=== PATIENT | male | born 1990 | race Hispanic/Latino ===

== ENCOUNTER 2017-06-18 23:56 | Emergency (ER) | payer SELFPAY ==
[2017-06-19 04:11] LABS: Basophils % (Auto) 0.8 % (0.0-1.8); Eosinophils % (Auto) 2.3 % (0.0-4.3); Hematocrit 45.6 % (35.5-45.6); Hemoglobin 15.8 gm/dl (11.8-15.2); Mean Corpuscular HGB Conc 35 % (32-34); Mean Corpuscular Hemoglobin 29 pg (28-32); Mean Corpuscular Volume 85 fl (84-94); Platelet Count 293 K/mm3 (140-440); Red Blood Count 5.38 M/mm3 (3.65-5.03); Red Cell Distribution Width 12.9 % (13.2-15.2); White Blood Count 10.4 K/mm3 (4.5-11.0)
[2017-06-19 04:33] LABS: Alanine Aminotransferase 38 units/L (7-56); Albumin 4.5 g/dL (3.9-5); Albumin/Globulin Ratio 1.6 %; Alkaline Phosphatase 68 units/L (35-129); Anion Gap 18 mmol/L; BUN/Creatinine Ratio 8.88; Blood Urea Nitrogen 8 mg/dL (9-20); Carbon Dioxide 26 mmol/L (22-30); Chloride 101.7 mmol/L (98-107); Glucose 104 mg/dL (75-100); Lipase 31 units/L (13-60); Potassium 4.1 mmol/L (3.6-5.0); Sodium 142 mmol/L (137-145); Total Protein 7.4 g/dL (6.3-8.2)
[2017-06-19 07:13] LABS: Bilirubin,Urine NEG (Negative); Blood,Urine NEG (Negative); Ketones,Urine NEG (Negative); Leukocyte Esterase,Urine NEG (Negative); Mucus,Urine FEW /HPF; Nitrite,Urine NEG (Negative); Protein,Urine <15 mg/dL mg/dL (Negative); Urobilinogen,Urine < 2.0 mg/dL (<2.0); WBC,Urine < 1.0 /HPF (0.0-6.0)
[2017-06-19] MEDS ORDERED: MORPHINE IV ONE (08:40)
[2017-06-19] MEDS ORDERED: ZOFRAN IV ONE (08:40)
[2017-06-19] MEDS ORDERED: NACL 0.9% 1000 ML 1,000 ML IV ONE (08:40)
--- NOTE | 2017-06-19 08:40 | Emergency Department Report ---
ED Abdominal Pain HPI - General Chief Complaint: Abdominal Pain Stated Complaint: ABD PAIN/VOMITING Time Seen by Provider: 06/19/17 08:18 Source: patient Mode of arrival: Ambulatory Limitations: No Limitations - History of Present Illness Initial Comments: 26-year-old male with a history of Crohn's disease here with complaint of worsening left lower quadrant pain for approximately 3 weeks. Patient states that his pain is significant bleeding worsened over the last day. He he has been having some nausea and vomiting that started yesterday. Denies fevers chills. He had a bowel movement with bloody stool yesterday. He is followed by loans consultant Dr. King at [facility]. He is not taking any medial modulators. States he may have had a recent CT within the last 30 days. MD Complaint: abdominal pain -: Gradual Location: LLQ Radiation: none Migration to: no migration Severity: moderate Severity scale (0 -10): 10 Quality: cramping Consistency: colicky Improves With: nothing Worsens With: eating Associated Symptoms: nausea, vomiting, diarrhea - Related Data Home Medications Medication Instructions Recorded Confirmed Last Taken ALPRAZolam [Xanax TAB] 0.5 mg PO Q6H PRN 06/19/17 06/19/17 06/16/17 traMADol [Ultram] 50 mg PO Q6HR PRN 06/19/17 06/19/17 06/12/17 Previous Rx's Medication Instructions Recorded Last Taken Type Ibuprofen [Motrin] 600 mg PO Q8H PRN #30 tablet 06/19/17 Unknown Rx predniSONE [Deltasone] 40 mg PO QDAY #6 tab 06/19/17 Unknown Rx traMADol [Ultram 50 MG tab] 50 mg PO Q6HR PRN #15 tablet 06/19/17 Unknown Rx Allergies Allergy/AdvReac Type Severity Reaction Status Date / Time No Known Allergies Allergy Verified 06/19/17 09:05 ED Review of Systems ROS: Stated complaint: ABD PAIN/VOMITING Other details as noted in HPI Comment: All other systems reviewed and negative Constitutional: denies: chills, fever Eyes: denies: eye pain, eye discharge, vision change Respiratory: denies: cough, shortness of breath, wheezing Cardiovascular: denies: chest pain, palpitations Endocrine: no symptoms reported Gastrointestinal: abdominal pain, nausea, diarrhea Genitourinary: denies: urgency, dysuria Musculoskeletal: denies: back pain, joint swelling, arthralgia Skin: denies: rash, lesions Neurological: denies: headache, weakness, paresthesias Psychiatric: denies: anxiety, depression Hematological/Lymphatic: denies: easy bleeding, easy bruising ED Past Medical Hx - Past Medical History Previous Medical History?: Yes Additional medical history: crohn's, h/o MRSA 2008 - Surgical History Past Surgical History?: Yes Additional Surgical History: neck sx secondary to MRSA, 2008 - Family History Family history: no significant - Social History Smoking Status: Never Smoker Substance Use Type: None - Medications Home Medications: Home Medications Medication Instructions Recorded Confirmed Last Taken Type ALPRAZolam [Xanax TAB] 0.5 mg PO Q6H PRN 06/19/17 06/19/17 06/16/17 History Ibuprofen [Motrin] 600 mg PO Q8H PRN #30 tablet 06/19/17 Unknown Rx predniSONE [Deltasone] 40 mg PO QDAY #6 tab 06/19/17 Unknown Rx traMADol [Ultram 50 MG tab] 50 mg PO Q6HR PRN #15 tablet 06/19/17 Unknown Rx traMADol [Ultram] 50 mg PO Q6HR PRN 06/19/17 06/19/17 06/12/17 History ED Physical Exam - General Limitations: No Limitations General appearance: alert, in no apparent distress - Head Head exam: Present: atraumatic, normocephalic - Eye Eye exam: Present: normal appearance. Absent: scleral icterus - ENT ENT exam: Present: mucous membranes moist - Neck Neck exam: Present: normal inspection - Respiratory Respiratory exam: Present: normal lung sounds bilaterally. Absent: respiratory distress - Cardiovascular Cardiovascular Exam: Present: regular rate, normal rhythm. Absent: systolic murmur, diastolic murmur, rubs, gallop - GI/Abdominal GI/Abdominal exam: Present: soft, tenderness (left lower quadrant left lower quadrant), guarding (mild), normal bowel sounds - Rectal Rectal exam: Present: deferred - Extremities Exam Extremities exam: Present: normal inspection - Back Exam Back exam: Present: normal inspection - Neurological Exam Neurological exam: Present: alert, oriented X3 - Psychiatric Psychiatric exam: Present: normal affect, normal mood - Skin Skin exam: Present: warm, dry, intact, normal color. Absent: rash ED Course Vital Signs 06/19/17 06/19/17 06/19/17 00:07 00:10 00:20 Temperature Pulse Rate 113 H 113 H 114 H Respiratory 27 H 28 H 39 H Rate Blood Pressure 164/80 164/80 146/70 Blood Pressure [Left] Blood Pressure [Right] O2 Sat by Pulse 100 100 100 Oximetry 06/19/17 06/19/17 06/19/17 00:30 00:36 00:40 Temperature 99 F Pulse Rate 109 H 77 108 H Respiratory 26 H 18 42 H Rate Blood Pressure 146/70 157/83 Blood Pressure [Left] Blood Pressure 124/81 [Right] O2 Sat by Pulse 100 100 100 Oximetry 06/19/17 06/19/17 06/19/17 00:50 00:56 01:00 Temperature 99 F Pulse Rate 107 H 77 106 H Respiratory 27 H 18 40 H Rate Blood Pressure 154/80 124/81 154/80 Blood Pressure [Left] Blood Pressure [Right] O2 Sat by Pulse 100 100 100 Oximetry 06/19/17 06/19/17 06/19/17 02:16 02:20 02:30 Temperature Pulse Rate 110 H 110 H 109 H Respiratory 31 H 18 Rate Blood Pressure 147/77 157/79 157/79 Blood Pressure [Left] Blood Pressure [Right] O2 Sat by Pulse 94 97 96 Oximetry 06/19/17 06/19/17 06/19/17 02:40 02:50 03:00 Temperature Pulse Rate 108 H 112 H 109 H Respiratory 30 H 15 35 H Rate Blood Pressure 165/83 164/81 164/81 Blood Pressure [Left] Blood Pressure [Right] O2 Sat by Pulse 100 100 100 Oximetry 06/19/17 06/19/17 06/19/17 04:06 07:52 08:00 Temperature Pulse Rate 96 H 75 Respiratory 24 19 Rate Blood Pressure 167/87 114/80 108/68 Blood Pressure [Left] Blood Pressure [Right] O2 Sat by Pulse 100 99 Oximetry 06/19/17 06/19/17 06/19/17 08:08 08:10 08:20 Temperature 98.3 F Pulse Rate 84 79 92 H Respiratory 18 16 18 Rate Blood Pressure 108/68 108/68 Blood Pressure 114/80 [Left] Blood Pressure [Right] O2 Sat by Pulse 98 96 98 Oximetry 06/19/17 06/19/17 06/19/17 08:22 08:30 08:40 Temperature Pulse Rate 79 74 Respiratory 18 18 15 Rate Blood Pressure 111/68 111/68 Blood Pressure [Left] Blood Pressure [Right] O2 Sat by Pulse 98 98 Oximetry 06/19/17 06/19/17 06/19/17 08:50 09:20 09:30 Temperature Pulse Rate 74 64 Respiratory 15 11 L Rate Blood Pressure 111/68 96/50 Blood Pressure [Left] Blood Pressure [Right] O2 Sat by Pulse 98 97 99 Oximetry 06/19/17 06/19/17 06/19/17 09:40 09:50 10:00 Temperature Pulse Rate 70 63 70 Respiratory 17 13 14 Rate Blood Pressure 96/50 96/50 111/68 Blood Pressure [Left] Blood Pressure [Right] O2 Sat by Pulse 100 100 99 Oximetry ED Medical Decision Making - Lab Data Result diagrams: 06/19/17 03:45 06/19/17 03:45 Laboratory Results - last 24 hr 06/19/17 06/19/17 06/19/17 03:45 03:45 Unknown WBC 10.4 RBC 5.38 H Hgb 15.8 H Hct 45.6 MCV 85 MCH 29 MCHC 35 H RDW 12.9 L Plt Count 293 Lymph % (Auto) 28.6 [place] % (Auto) 6.4 Eos % (Auto) 2.3 Baso % (Auto) 0.8 Lymph # 3.0 [place] # 0.7 Eos # 0.2 Baso # 0.1 Seg Neutrophils % 61.9 Seg Neutrophils # 6.4 Sodium 142 Potassium 4.1 Chloride 101.7 Carbon Dioxide 26 Anion Gap 18 BUN 8 L Creatinine 0.9 Estimated GFR > 60 BUN/Creatinine Ratio 8.88 Glucose 104 H Calcium 9.0 Total Bilirubin 0.50 AST 17 ALT 38 Alkaline Phosphatase 68 Total Protein 7.4 Albumin 4.5 Albumin/Globulin Ratio 1.6 Lipase 31 Urine Color Yellow Urine Turbidity Clear Urine pH 6.0 Ur Specific [place] 1.015 Urine Protein <15 mg/dl Urine Glucose (UA) Neg Urine Ketones Neg Urine Blood Neg Urine Nitrite Neg Urine Bilirubin Neg Urine Urobilinogen < 2.0 Ur Leukocyte Esterase Neg Urine WBC (Auto) < 1.0 Urine RBC (Auto) 1.0 Urine Mucus Few - Radiology Data Radiology results: report reviewed - Medical Decision Making 26-year-old male with a history of Crohn's disease here with worsening left lower quadrant pain. This is not typical of his Crohn's pain. Even though he had a recent CT I plan to CT his abdomen with IV contrast given his change in the character of his pain. He has no white count and his labs are otherwise unremarkable. He does appear clinically dehydrated and we will treat with IV fluids and Zofran and morphine. Will likely start a dose of steroids here in the emergency department and referred back to his loans consultant. 10:21 AM- on reassessment patient feels slightly improved. His labs are unremarkable. His CT is normal. Plan to discharge home with follow-up to his loans consultant. Portions of this chart were dictated with dictation software. There may be dictation errors contained within this note. Critical care attestation.: If time is entered above; I have spent that time in minutes in the direct care of this critically ill patient, excluding procedure time. ED Disposition Clinical Impression: Abdominal pain, Crohn disease Disposition: DC-01 TO HOME OR SELFCARE Is pt being admited?: No Condition: Stable Instructions: Acute Abdominal Pain (ED) Additional Instructions: Follow-up with your loans consultant Prescriptions: Ibuprofen [Motrin] 600 mg PO Q8H PRN #30 tablet PRN Reason: Pain predniSONE [Deltasone] 40 mg PO QDAY #6 tab traMADol [Ultram 50 MG tab] 50 mg PO Q6HR PRN #15 tablet PRN Reason: Pain Referrals: PRIMARY CARE, [Primary Care Provider] - 3-5 Days
[2017-06-19] MEDS ORDERED: NACL ONE (09:01)
--- NOTE | 2017-06-19 09:31 | Cat Scan Report ---
CT SCAN OF THE ABDOMEN AND PELVIS WITH CONTRAST: HISTORY: Left lower quadrant abdominal pain, Crohn's disease. TECHNIQUE: Helical CT in 1.25mm intervals following IV contrast. Sagittal and coronal reconstructions. COMPARISON: None at this facility. FINDINGS: The liver is normal in size and is without focal defect. No gallstones or biliary dilatation are noted. The spleen and pancreas demonstrate a normal size and attenuation with no evidence of abnormal mass. The kidneys are normal in size and position with no evidence of hydronephrosis or mass. The adrenal glands are normal. There is no intestinal obstruction or ascites. Normal appendix. The abdominal aorta is normal. No abnormalities are identified within the retroperitoneum or mesentery. There is no evidence of peritoneal air or fluid. There is no evidence of any abnormal masses or fluid collections within the pelvis. No adenopathy is identified. The bladder is normal. IMPRESSION: Unremarkable CT scan of the abdomen and pelvis with contrast.
[2017-06-19 10:20] VITALS: BP 111/68
== END 2017-06-19 10:44 | disposition home or self-care (01) ==
LOC: ED 23:56
DX: K50.90 Crohn's disease, unspecified, without complications (principal)
CPT/HCPCS: 36415; 74177; 80053; 81001; 83690; 85025; 96361; 96374; 96375; 99284; J2270; J2405; J7030; Q9967

== ENCOUNTER 2017-10-01 14:37 | Emergency (ER) | payer OTHER ==
[2017-10-01 14:57] VITALS: BP 133/74
[2017-10-01] MEDS ORDERED: ZOFRAN ODT PO ONE (15:12)
--- NOTE | 2017-10-01 15:14 | Emergency Department Report ---
Chief Complaint: Abdominal Pain Stated Complaint: ABD PAIN Time Seen by Provider: 10/01/17 15:12 - [facility] History of Present Illness: Patient is a 26-year-old male with a history of Crohn's disease diagnosed in 2008 presents ED complaining of left right abdominal pain 3 days. She states he's never had a pain like days and is Crohn's flareup to not cause as much pain. He admits nausea but did denies fever/chills/vomiting/diarrhea or constipation - ROS Review of Systems: as noted in HPI - Exam Vital Signs: Vital Signs 10/01/17 14:53 Temperature 98.7 F Pulse Rate 100 H Respiratory 16 Rate Blood Pressure 133/74 O2 Sat by Pulse 100 Oximetry Physical Exam: GENERAL: Alert and oriented x3, no apparent distress, Normal Gait, atraumatic. HEAD: Head is normocephalic and a-traumatic. HEART: S1, S2 present, regular rate and rhythm without murmur, no rubs, no gallops. Non tender to palpation ABDOMEN: Tender to palpation right mid quadrant, NO CVA tenderness. MSE screening note: Focused history and physical exam performed. Due to findings the following was ordered: ED Medical Decision Making - Lab Data Result diagrams: 10/01/17 15:18 10/01/17 15:18 - Medical Decision Making Abdominal pain protocol ordered. Zofran ordered for nausea Patient is to be seen the ED physician ED Disposition for MSE Condition: Stable
[2017-10-01 15:33] LABS: Basophils % (Auto) 0.8 % (0.0-1.8); Eosinophils % (Auto) 2.3 % (0.0-4.3); Hematocrit 48.7 % (35.5-45.6); Hemoglobin 16.5 gm/dl (11.8-15.2); Mean Corpuscular HGB Conc 34 % (32-34); Mean Corpuscular Hemoglobin 30 pg (28-32); Mean Corpuscular Volume 88 fl (84-94); Platelet Count 247 K/mm3 (140-440); Red Blood Count 5.56 M/mm3 (3.65-5.03); Red Cell Distribution Width 13.3 % (13.2-15.2)
[2017-10-01 15:52] LABS: Alanine Aminotransferase 29 units/L (7-56); Albumin 4.3 g/dL (3.9-5); Albumin/Globulin Ratio 1.6 %; Alkaline Phosphatase 100 units/L (35-129); Anion Gap 17 mmol/L; BUN/Creatinine Ratio 8; Blood Urea Nitrogen 6 mg/dL (9-20); Calcium 8.9 mg/dL (8.4-10.2); Carbon Dioxide 28 mmol/L (22-30); Chloride 98.8 mmol/L (98-107); Glucose 126 mg/dL (75-100); Lipase 29 units/L (13-60); Sodium 140 mmol/L (137-145)
[2017-10-01 17:06] LABS: Bilirubin,Urine Negative (Negative); Ketones,Urine Negative (Negative)
[2017-10-01 17:07] LABS: Blood,Urine Negative (Negative); Leukocyte Esterase,Urine Negative (Negative); Nitrite,Urine Negative (Negative); Protein,Urine <15 mg/dL mg/dL (Negative); Urobilinogen,Urine < 2.0 mg/dL (<2.0)
[2017-10-01 17:08] LABS: Mucus,Urine 1+ /HPF
--- NOTE | 2017-10-01 18:01 | Cat Scan Report ---
FINAL REPORT EXAM: CT ABDOMEN PELVIS WO CON HISTORY: rq pain TECHNIQUE: CT abdomen and pelvis without contrast PRIORS: None. FINDINGS: No acute abnormality identified in the lung bases. No focal abnormality identified within the liver parenchyma. The spleen demonstrates normal size and attenuation. No pancreatic abnormalities seen. There is punctate there is punctate nonobstructing lower pole right renal calculus There is a punctate nonobstructing upper pole left renal calculus. No ureteral calculi are identified. No evidence for hydronephrosis or perinephric stranding. The adrenal glands are unremarkable. Abdominal aorta is normal in caliber. No pathologically enlarged lymph nodes are identified. No signs of free fluid or free air No evidence of small bowel dilatation. No evidence of colonic dilatation. No pericolonic inflammatory change seen. appendix is identified and is unremarkable IMPRESSION: Punctate nonobstructing bilateral renal calculi
[2017-10-01] MEDS ORDERED: ZOFRAN IM ONE (18:21)
[2017-10-01] MEDS ORDERED: DILAUDID IM ONE (18:21)
--- NOTE | 2017-10-01 18:26 | Emergency Department Report ---
ED Abdominal Pain HPI - General Chief Complaint: Abdominal Pain Stated Complaint: ABD PAIN Time Seen by Provider: 10/01/17 15:12 Source: patient, family Mode of arrival: Ambulatory Limitations: No Limitations - History of Present Illness Initial Comments: Patient is 26-year-old male with history of Crohn's disease coming today was left lower quadrant abdominal pain for the last 4 days associated with nausea no vomiting, patient denied diarrhea. No fever, no urinary symptoms. MD Complaint: abdominal pain -: Gradual Location: LLQ Severity scale (0 -10): 7 Quality: cramping Associated Symptoms: nausea. denies: vomiting, diarrhea - Related Data Home Medications Medication Instructions Recorded Confirmed Last Taken ALPRAZolam [Xanax TAB] 0.5 mg PO Q6H PRN 06/19/17 06/19/17 06/16/17 Previous Rx's Medication Instructions Recorded Last Taken Type HYDROcodone/APAP 5-325 [[place] 1 each PO Q6HR PRN #11 tablet 06/19/17 Unknown Rx 5-325 mg TAB] Ibuprofen [Motrin] 600 mg PO Q8H PRN #30 tablet 06/19/17 Unknown Rx predniSONE [Deltasone] 40 mg PO QDAY #6 tab 06/19/17 Unknown Rx traMADol [Ultram 50 MG tab] 50 mg PO Q6HR PRN #15 tablet 06/19/17 Unknown Rx HYDROcodone/APAP 5-325 [[place] 1 each PO Q6HR PRN #14 tablet 10/01/17 Unknown Rx 5/325] Ondansetron [Zofran Odt] 4 mg PO Q8HR PRN #14 tab.rapdis 10/01/17 Unknown Rx Allergies Allergy/AdvReac Type Severity Reaction Status Date / Time NSAIDS (Non-Steroidal AdvReac Unknown Verified 10/01/17 14:57 Anti-Inflamma ED Review of Systems ROS: Stated complaint: ABD PAIN Other details as noted in HPI Comment: All other systems reviewed and negative Constitutional: denies: chills, fever Respiratory: denies: cough, orthopnea, shortness of breath Cardiovascular: denies: chest pain, palpitations Gastrointestinal: abdominal pain, nausea. denies: vomiting, diarrhea, constipation, hematemesis, hematochezia Genitourinary: denies: urgency, frequency Musculoskeletal: denies: back pain Skin: denies: rash, lesions Neurological: denies: headache, weakness, numbness, paresthesias ED Past Medical Hx - Past Medical History Previous Medical History?: Yes Additional medical history: crohn's, h/o MRSA 2008 - Surgical History Past Surgical History?: Yes Additional Surgical History: neck sx secondary to MRSA, 2008 - Social History Smoking Status: Current Every Day Smoker Substance Use Type: None - Medications Home Medications: Home Medications Medication Instructions Recorded Confirmed Last Taken Type ALPRAZolam [Xanax TAB] 0.5 mg PO Q6H PRN 06/19/17 06/19/17 06/16/17 History HYDROcodone/APAP 5-325 [[place] 1 each PO Q6HR PRN #11 tablet 06/19/17 Unknown Rx 5-325 mg TAB] Ibuprofen [Motrin] 600 mg PO Q8H PRN #30 tablet 06/19/17 Unknown Rx predniSONE [Deltasone] 40 mg PO QDAY #6 tab 06/19/17 Unknown Rx traMADol [Ultram 50 MG tab] 50 mg PO Q6HR PRN #15 tablet 06/19/17 Unknown Rx HYDROcodone/APAP 5-325 [[place] 1 each PO Q6HR PRN #14 tablet 10/01/17 Unknown Rx 5/325] Ondansetron [Zofran Odt] 4 mg PO Q8HR PRN #14 tab.rapdis 10/01/17 Unknown Rx ED Physical Exam - General Limitations: No Limitations General appearance: alert, in no apparent distress - Head Head exam: Present: atraumatic, normocephalic - ENT ENT exam: Present: normal exam, normal orophraynx, mucous membranes moist - Neck Neck exam: Present: normal inspection. Absent: tenderness, meningismus - Respiratory Respiratory exam: Present: normal lung sounds bilaterally - Cardiovascular Cardiovascular Exam: Present: regular rate, normal rhythm, normal heart sounds - GI/Abdominal GI/Abdominal exam: Present: soft, tenderness (left lower quadrant), normal bowel sounds. Absent: distended, guarding, rebound, rigid, mass, bruit, pulsatile mass, hernia - Back Exam Back exam: Present: normal inspection. Absent: tenderness, CVA tenderness (R), CVA tenderness (L) - Neurological Exam Neurological exam: Present: alert, oriented X3, CN II-XII intact - Skin Skin exam: Present: warm, intact, normal color. Absent: dry, cyanosis ED Course Vital Signs 10/01/17 10/01/17 10/01/17 14:53 17:21 18:33 Temperature 98.7 F Pulse Rate 100 H Respiratory 16 18 18 Rate Blood Pressure 133/74 O2 Sat by Pulse 100 100 Oximetry - Reevaluation(s) Reevaluation #1: 10/01/17 18:52 He stated that he is feeling better after the pain medicine. ED Medical Decision Making - Lab Data Result diagrams: 10/01/17 15:18 10/01/17 15:18 - Radiology Data Radiology results: report reviewed Bilateral punctate kidney calculi. No obstructive kidney stone or ureteric stone. Critical care attestation.: If time is entered above; I have spent that time in minutes in the direct care of this critically ill patient, excluding procedure time. ED Disposition Clinical Impression: Kidney stones, Flank pain, acute Disposition: DC-01 TO HOME OR SELFCARE Is pt being admited?: No Condition: Stable Instructions: Kidney Stones (ED), Abdominal Pain (ED) Prescriptions: HYDROcodone/APAP 5-325 [[place] 5/325] 1 each PO Q6HR PRN #14 tablet PRN Reason: Pain Ondansetron [Zofran Odt] 4 mg PO Q8HR PRN #14 tab.rapdis PRN Reason: Nausea And Vomiting Referrals: PRIMARY CAREMD [Primary Care Provider] - 3-5 Days DUKE LOZA MD [Staff Physician] - 3-5 Days
== END 2017-10-01 19:12 | disposition home or self-care (01) ==
LOC: ED 14:37
DX: N20.0 Calculus of kidney (principal); F17.200 Nicotine dependence, unspecified, uncomplicated; Z88.8 Allergy status to other drugs, medicaments and biological substances
CPT/HCPCS: 36415; 74176; 80053; 81001; 83690; 85025; 96372; 99284; J1170; J2405; Q0162

== ENCOUNTER 2017-11-13 19:42 | Emergency (ER) | payer SELFPAY ==
[2017-11-13 20:42] LABS: Basophils % (Auto) 0.5 % (0.0-1.8); Eosinophils % (Auto) 0.7 % (0.0-4.3); Hematocrit 45.5 % (35.5-45.6); Hemoglobin 15.9 gm/dl (11.8-15.2); Mean Corpuscular HGB Conc 35 % (32-34); Mean Corpuscular Hemoglobin 31 pg (28-32); Mean Corpuscular Volume 88 fl (84-94); Platelet Count 198 K/mm3 (140-440); Red Blood Count 5.19 M/mm3 (3.65-5.03); Red Cell Distribution Width 13.1 % (13.2-15.2); White Blood Count 9.3 K/mm3 (4.5-11.0)
[2017-11-13] MEDS ORDERED: TYLENOL PO ONE (20:48)
[2017-11-13] MEDS ORDERED: MOTRIN PO ONE (20:48)
[2017-11-13 20:49] LABS: Anion Gap 17 mmol/L; BUN/Creatinine Ratio 9; Blood Urea Nitrogen 7 mg/dL (9-20); Calcium 8.8 mg/dL (8.4-10.2); Carbon Dioxide 28 mmol/L (22-30); Glucose 97 mg/dL (75-100); Potassium 3.7 mmol/L (3.6-5.0); Sodium 141 mmol/L (137-145)
--- NOTE | 2017-11-13 20:52 | Emergency Department Report ---
ED General Adult HPI - General Chief complaint: Upper Respiratory Infection Stated complaint: FEVER,CHEST PAIN,HEADACHE,NAUSEA Time Seen by Provider: 11/13/17 20:36 Source: patient, RN notes reviewed Mode of arrival: Ambulatory Limitations: No Limitations - History of Present Illness Initial comments: This is a 27-year-old male who was previously unknown to this provider, he reports that he does not currently have a primary care doctor. He reports a history of tobacco consumption and possible Crohn's disease. Patient presents to the ER with one week of body aches, facial pressure, congestion, stuffiness, runny nose, chest wall burning with coughing, and pressure over his chest. The symptoms are constant, they worsen with palpation, they decrease with rest. No sick contacts that he is aware of, denies neck stiffness, lower abdominal pain, denies testicular pain, but does endorse some discomfort with urination. Reports that he has not gotten his flu shot. No pulmonary embolus or DVT risk factors. -: Gradual Location: head, mouth, chest, back, left, right, upper extremity, lower extremity Quality: aching Consistency: intermittent Improves with: rest Associated Symptoms: chest pain, cough, fever/chills, headaches, loss of appetite, malaise, weakness - Related Data Home Medications Medication Instructions Recorded Confirmed Last Taken ALPRAZolam [Xanax TAB] 0.5 mg PO Q6H PRN 06/19/17 06/19/17 06/16/17 Previous Rx's Medication Instructions Recorded Last Taken Type HYDROcodone/APAP 5-325 [[place] 1 each PO Q6HR PRN #11 tablet 06/19/17 Unknown Rx 5-325 mg TAB] Ibuprofen [Motrin] 600 mg PO Q8H PRN #30 tablet 06/19/17 Unknown Rx predniSONE [Deltasone] 40 mg PO QDAY #6 tab 06/19/17 Unknown Rx traMADol [Ultram 50 MG tab] 50 mg PO Q6HR PRN #15 tablet 06/19/17 Unknown Rx HYDROcodone/APAP 5-325 [[place] 1 each PO Q6HR PRN #14 tablet 10/01/17 Unknown Rx 5/325] Ondansetron [Zofran Odt] 4 mg PO Q8HR PRN #14 tab.rapdis 10/01/17 Unknown Rx Acetaminophen [Tylenol Arthritis] 650 mg PO Q6HR PRN #30 tablet.er 11/13/17 Unknown Rx Albuterol Sulfate [Proair 90 mcg IH Q4HR PRN #2 aer.pow.ba 11/13/17 Unknown Rx Respiclick] Benzonatate [Tessalon Perles] 100 mg PO Q8HR PRN #30 capsule 11/13/17 Unknown Rx Fluticasone [Flonase] 1 spray NS QDAY #1 bottle 11/13/17 Unknown Rx Allergies Allergy/AdvReac Type Severity Reaction Status Date / Time NSAIDS (Non-Steroidal AdvReac Unknown Verified 10/01/17 14:57 Anti-Inflamma ED Review of Systems ROS: Stated complaint: FEVER,CHEST PAIN,HEADACHE,NAUSEA Other details as noted in HPI ED Past Medical Hx - Past Medical History Previous Medical History?: Yes Additional medical history: crohn's, h/o MRSA 2008 - Surgical History Past Surgical History?: No Additional Surgical History: neck sx secondary to MRSA, 2008 - Social History Smoking Status: Current Every Day Smoker Substance Use Type: None - Medications Home Medications: Home Medications Medication Instructions Recorded Confirmed Last Taken Type ALPRAZolam [Xanax TAB] 0.5 mg PO Q6H PRN 06/19/17 06/19/17 06/16/17 History HYDROcodone/APAP 5-325 [[place] 1 each PO Q6HR PRN #11 tablet 06/19/17 Unknown Rx 5-325 mg TAB] Ibuprofen [Motrin] 600 mg PO Q8H PRN #30 tablet 06/19/17 Unknown Rx predniSONE [Deltasone] 40 mg PO QDAY #6 tab 06/19/17 Unknown Rx traMADol [Ultram 50 MG tab] 50 mg PO Q6HR PRN #15 tablet 06/19/17 Unknown Rx HYDROcodone/APAP 5-325 [[place] 1 each PO Q6HR PRN #14 tablet 10/01/17 Unknown Rx 5/325] Ondansetron [Zofran Odt] 4 mg PO Q8HR PRN #14 tab.rapdis 10/01/17 Unknown Rx Acetaminophen [Tylenol Arthritis] 650 mg PO Q6HR PRN #30 tablet.er 11/13/17 Unknown Rx Albuterol Sulfate [Proair 90 mcg IH Q4HR PRN #2 aer.pow.ba 11/13/17 Unknown Rx Respiclick] Benzonatate [Tessalon Perles] 100 mg PO Q8HR PRN #30 capsule 11/13/17 Unknown Rx Fluticasone [Flonase] 1 spray NS QDAY #1 bottle 11/13/17 Unknown Rx ED Physical Exam - General Limitations: No Limitations General appearance: alert, in no apparent distress - Head Head exam: Present: atraumatic, normocephalic - Eye Eye exam: Present: normal appearance, PERRL, EOMI. Absent: nystagmus - ENT ENT exam: Present: normal exam, normal orophraynx, mucous membranes moist, TM's normal bilaterally, normal external ear exam - Neck Neck exam: Present: normal inspection, full ROM. Absent: tenderness, meningismus - Respiratory Respiratory exam: Present: normal lung sounds bilaterally. Absent: respiratory distress, wheezes, rales, rhonchi, stridor, chest wall tenderness, accessory muscle use, decreased breath sounds, prolonged expiratory - Cardiovascular Cardiovascular Exam: Present: regular rate, normal rhythm. Absent: systolic murmur, diastolic murmur, rubs, gallop - GI/Abdominal GI/Abdominal exam: Present: soft, normal bowel sounds. Absent: distended, tenderness, guarding - Rectal Rectal exam: Present: deferred - exam: Present: normal inspection. Absent: testicular tenderness External exam: Present: normal external exam, other (there is no testicular tenderness. There is normal testicular lie bilaterally. There is normal cremasteric reflex bilaterally.) - Extremities Exam Extremities exam: Present: normal inspection, full ROM, normal capillary refill. Absent: tenderness, pedal edema, joint swelling, calf tenderness - Back Exam Back exam: Present: normal inspection, full ROM. Absent: tenderness, CVA tenderness (R), paraspinal tenderness, vertebral tenderness - Neurological Exam Neurological exam: Present: alert, oriented X3, CN II-XII intact, normal gait, other (Extraocular movements intact. Tongue midline. No facial droop. Facial sensation intact to light touch in the V1, V2, V3 distribution bilaterally. 5 and 5 strength in 4 extremities.. Sensation is intact to light touch in 4 extremities.). Absent: motor sensory deficit - Psychiatric Psychiatric exam: Present: normal affect, normal mood, anxious - Skin Skin exam: Present: warm, dry, intact, normal color. Absent: rash ED Course Vital Signs 11/13/17 11/13/17 11/13/17 19:49 21:26 21:27 Temperature 99.4 F 99.7 F H Pulse Rate 111 H 100 H Respiratory 20 20 Rate Blood Pressure 114/72 Blood Pressure 105/63 [Right] O2 Sat by Pulse 99 97 Oximetry 11/13/17 22:06 Temperature 99.3 F Pulse Rate 92 H Respiratory 20 Rate Blood Pressure Blood Pressure 116/58 [Right] O2 Sat by Pulse 99 Oximetry - Reevaluation(s) Reevaluation #1: 11/13/17 21:49 Urinalysis negative. Resting comfortably. Patient will be discharged. ED Medical Decision Making - Lab Data Result diagrams: 11/13/17 20:12 11/13/17 20:12 Vital Signs 11/13/17 19:49 Temperature 99.4 F Pulse Rate 111 H Respiratory 20 Rate Blood Pressure 114/72 O2 Sat by Pulse 99 Oximetry Lab Results 11/13/17 11/13/17 11/13/17 Range/Units 20:12 20:12 20:12 WBC 9.3 (4.5-11.0) K/mm3 RBC 5.19 H (3.65-5.03) M/mm3 Hgb 15.9 H (11.8-15.2) gm/dl Hct 45.5 (35.5-45.6) % MCV 88 (84-94) fl MCH 31 (28-32) pg MCHC 35 H (32-34) % RDW 13.1 L (13.2-15.2) % Plt Count 198 (140-440) K/mm3 Lymph % (Auto) 11.1 L (13.4-35.0) % [place] % (Auto) 9.8 H (0.0-7.3) % Eos % (Auto) 0.7 (0.0-4.3) % Baso % (Auto) 0.5 (0.0-1.8) % Lymph # 1.0 L (1.2-5.4) K/mm3 [place]age # 0.9 H (0.0-0.8) K/mm3 Eos # 0.1 (0.0-0.4) K/mm3 Baso # 0.0 (0.0-0.1) K/mm3 Seg Neutrophils % 77.9 H (40.0-70.0) % Seg Neutrophils # 7.3 (1.8-7.7) K/mm3 Sodium 141 (137-145) mmol/L Potassium 3.7 (3.6-5.0) mmol/L Chloride 100.0 (98-107) mmol/L Carbon Dioxide 28 (22-30) mmol/L Anion Gap 17 mmol/L BUN 7 L (9-20) mg/dL Creatinine 0.8 (0.8-1.5) mg/dL Estimated GFR > 60 ml/min BUN/Creatinine Ratio 9 % Glucose 97 (75-100) mg/dL Calcium 8.8 (8.4-10.2) mg/dL Troponin T < 0.010 (0.00-0.029) ng/mL - EKG Data 11/13/17 21:20 Normal sinus, 99 bpm, normal axis, normal intervals, normal EKG, not morphologically consistent with ST elevation myocardial infarction - Radiology Data Radiology results: report reviewed, image reviewed X-ray the chest, interpreted by myself and radiology: No acute disease - Medical Decision Making Differential diagnosis, including but not limited to: Viral syndrome, bronchitis , pneumonia, pericarditis, myocarditis Assessment and plan: 27-year-old male with 1 week of what clinically sounds like a viral syndrome/influenza-like illness. His symptoms have impressive for greater than 72 hours, therefore there is no utility in screening for influenza. Low risk by well's criteria, has no pulmonary embolus/DVT risk factors ,low risk by BLANCHE score, low risk by heart score, troponin negative 1, therefore pericarditis, myocarditis very unlikely. Symptoms present for greater than 8 hours, they have been present for a week, therefore, as per the [employer] clinical policy, myocardial infarction may be ruled out. Patient at very low risk for major adverse cardiac events. His tachycardia resolved, he walks with a steady gait, and he is tolerating liquid feeds. Patient declined ibuprofen for pain, he endorsed an intolerance rather than an allergy, but was given acetaminophen. He does not appear to be an emergent condition at this time, and the patient is suitable to be managed expectantly. Critical care attestation.: If time is entered above; I have spent that time in minutes in the direct care of this critically ill patient, excluding procedure time. ED Disposition Clinical Impression: Viral syndrome Disposition: DC-01 TO HOME OR SELFCARE Is pt being admited?: No Does the pt Need Aspirin: No Condition: Stable Instructions: Acute Bronchitis (ED) Additional Instructions: Discontinued consumption of tobacco and tobacco-related products. Make certain that anybody closely as not consuming tobacco or tobacco-related products. Take the medications as needed/directed, please note that symptoms of cold/ bronchitis may last for up to 6 weeks. Symptoms will likely be prolonged if the patient continues to use tobacco. Follow up with the primary care doctor within the next 2-3 weeks. Return to the ER right away with new pain, worsening pain, migration of pain, fevers, chills, lethargy, irritability, projectile vomiting, confusion, change in mental status, inability to tolerate liquid feeds. Prescriptions: Acetaminophen [Tylenol Arthritis] 650 mg PO Q6HR PRN #30 tablet.er PRN Reason: Pain Albuterol Sulfate [Proair Respiclick] 90 mcg IH Q4HR PRN #2 aer.pow.ba PRN Reason: Wheezing Benzonatate [Tessalon Perles] 100 mg PO Q8HR PRN #30 capsule PRN Reason: Cough Fluticasone [Flonase] 1 spray NS QDAY #1 bottle Referrals: YAKELIN FIORE MD [Primary Care Provider] - 3-[address] [facility] [Provider Group] - 3-5 Days
--- NOTE | 2017-11-13 21:11 | XRay Report ---
FINAL REPORT PROCEDURE: XR CHEST ROUTINE 2V TECHNIQUE: PA and lateral chest radiographs were obtained. CPT 85447 HISTORY: cough COMPARISON: No prior studies are available for comparison. FINDINGS: Heart: Normal. Mediastinum/Vessels: Normal. Lungs/Pleural space: No infiltrate, effusion, or pneumothorax. Bony thorax: No acute osseous abnormality. Other: IMPRESSION: No pulmonary infiltrates are identified.
[2017-11-13 21:33] LABS: Bilirubin,Urine NEG (Negative); Blood,Urine NEG (Negative); Ketones,Urine 20 mg/dL (Negative); Leukocyte Esterase,Urine NEG (Negative); Mucus,Urine FEW /HPF; Nitrite,Urine NEG (Negative); Protein,Urine <15 mg/dL mg/dL (Negative)
[2017-11-13 22:08] VITALS: BP 116/58
== END 2017-11-13 22:08 | disposition home or self-care (01) ==
LOC: ED 19:42
DX: B34.9 Viral infection, unspecified (principal); F17.200 Nicotine dependence, unspecified, uncomplicated; Z88.6 Allergy status to analgesic agent
CPT/HCPCS: 36415; 71020; 80048; 81001; 82550; 84484; 85025; 93005; 93010

== ENCOUNTER 2018-01-12 17:18 | Emergency (ER) | payer SELFPAY ==
[2018-01-12 18:01] VITALS: BP 141/70
[2018-01-12 18:18] LABS: Basophils # (Auto) 0.1 K/mm3 (0.0-0.1); Basophils % (Auto) 0.7 % (0.0-1.8); Eosinophils # (Auto) 0.1 K/mm3 (0.0-0.4); Eosinophils % (Auto) 1.3 % (0.0-4.3); Hematocrit 48.6 % (35.5-45.6); Hemoglobin 16.5 gm/dl (11.8-15.2); Lymphocytes # (Auto) 1.2 K/mm3 (1.2-5.4); Lymphocytes % (Auto) 13.1 % (13.4-35.0); Mean Corpuscular HGB Conc 34 % (32-34); Mean Corpuscular Hemoglobin 30 pg (28-32); Mean Corpuscular Volume 88 fl (84-94); Monocytes # (Auto) 0.7 K/mm3 (0.0-0.8); Monocytes % (Auto) 7.9 % (0.0-7.3); Platelet Count 244 K/mm3 (140-440); Red Blood Count 5.54 M/mm3 (3.65-5.03); Red Cell Distribution Width 13.4 % (13.2-15.2)
[2018-01-12 18:28] LABS: BUN/Creatinine Ratio 13; Blood Urea Nitrogen 9 mg/dL (9-20); Calcium 8.7 mg/dL (8.4-10.2); Hemolysis Index 13
--- NOTE | 2018-01-12 19:00 | Cat Scan Report ---
FINAL REPORT PROCEDURE: CT head without contrast. TECHNIQUE: Computerized tomography of the head was performed without contrast material. HISTORY: Syncope. COMPARISON: No prior studies are available for comparison. FINDINGS: The ventricles are normal in size. The randle matter and white matter appear normal. There are no mass lesions. There is no intracranial hemorrhage. The calvarium appears intact. The mastoid air cells and paranasal sinuses are clear as far as visualized. IMPRESSION: Normal study.
[2018-01-12 19:24] LABS: Bilirubin,Urine NEG (Negative); Blood,Urine NEG (Negative); Color,Urine Yellow (Yellow); Mucus,Urine 2+ /HPF; Protein,Urine <15 mg/dL mg/dL (Negative)
== END 2018-01-12 18:30 | disposition left against medical advice (07) ==
LOC: ED 17:18
DX: R10.9 Unspecified abdominal pain (principal); Z53.21 Procedure and treatment not carried out due to patient leaving prior to being seen by health care provider
CPT/HCPCS: 36415; 70450; 80048; 81001; 85025

== ENCOUNTER 2018-04-13 23:44 | Emergency (ER) | payer OTHER ==
[2018-04-14 01:05] LABS: Basophils # (Auto) 0.1 K/mm3 (0.0-0.1); Basophils % (Auto) 0.8 % (0.0-1.8); Eosinophils # (Auto) 0.3 K/mm3 (0.0-0.4); Eosinophils % (Auto) 4.5 % (0.0-4.3); Hematocrit 45.1 % (35.5-45.6); Hemoglobin 15.3 gm/dl (11.8-15.2); Lymphocytes # (Auto) 2.5 K/mm3 (1.2-5.4); Lymphocytes % (Auto) 34.5 % (13.4-35.0); Mean Corpuscular HGB Conc 34 % (32-34); Mean Corpuscular Hemoglobin 30 pg (28-32); Mean Corpuscular Volume 87 fl (84-94); Monocytes # (Auto) 0.5 K/mm3 (0.0-0.8); Monocytes % (Auto) 7.2 % (0.0-7.3); Platelet Count 278 K/mm3 (140-440); Red Blood Count 5.17 M/mm3 (3.65-5.03); Red Cell Distribution Width 13.3 % (13.2-15.2)
[2018-04-14 01:43] LABS: Alanine Aminotransferase 15 units/L (7-56); Albumin 4.2 g/dL (3.9-5); BUN/Creatinine Ratio 10; Blood Urea Nitrogen 8 mg/dL (9-20); Calcium 8.9 mg/dL (8.4-10.2); Hemolysis Index 9; Lipase 90 units/L (13-60)
[2018-04-14 02:42] LABS: Bilirubin,Urine NEG (Negative); Blood,Urine NEG (Negative); Calcium Oxalate Crystals,Urine FEW; Color,Urine Yellow (Yellow); Mucus,Urine FEW /HPF; Protein,Urine <15 mg/dL mg/dL (Negative); WBC,Urine < 1.0 /HPF (0.0-6.0)
[2018-04-14 07:39] VITALS: BP 122/64
[2018-04-14] MEDS ORDERED: NACL 0.9% 1000 ML 1,000 ML IV ONE (07:58)
[2018-04-14] MEDS ORDERED: ZOFRAN IV ONE (07:58)
[2018-04-14] MEDS ORDERED: DILAUDID IV ONE (07:59)
--- NOTE | 2018-04-14 07:59 | Emergency Department Report ---
ED Abdominal Pain HPI - General Chief Complaint: Abdominal Pain Stated Complaint: CHRONS FLARE UP Time Seen by Provider: 04/14/18 07:32 Source: patient, RN notes reviewed, old records reviewed Mode of arrival: Ambulatory Limitations: No Limitations - History of Present Illness Initial Comments: This is a 27-year-old male, who I have evaluated in the past. His poultry vaccinator is Dr. Carlos King. He reports a past medical history of Crohn's disease. He reports his last colonoscopy was in 2015. He doesn't recall the results. He also reports being on chronic tramadol He presents to the ER with a complaint of nontraumatic left lower quadrant abdominal pain. The pain is stabbing. It is present for 3 days. It does not radiate anywhere. It increases with palpation. It decreases with rest. There is no nausea, vomiting, diarrhea, testicular pain, and patient indicates no irritative or obstructive urinary symptoms. He reports that his poultry vaccinator is no longer going to prescribe his tramadol, due to " federal regulations." He reports that he was given follow-up with outpatient pain management, but his appointment is not for 2 months. MD Complaint: abdominal pain -: Gradual, days(s) Location: LLQ Severity scale (0 -10): 8 Quality: stabbing Consistency: constant Improves With: medication, rest Worsens With: movement Associated Symptoms: other (as per history of present illness). denies: nausea , vomiting, diarrhea, fever, chills, constipation, dysuria, hematemesis, hematochezia, melena, hematuria, anorexia, syncope - Related Data Home Medications Medication Instructions Recorded Confirmed Last Taken ALPRAZolam [Xanax TAB] 0.5 mg PO Q6H PRN 06/19/17 06/19/17 06/16/17 Previous Rx's Medication Instructions Recorded Last Taken Type HYDROcodone/APAP 5-325 [[place] 1 each PO Q6HR PRN #11 tablet 06/19/17 Unknown Rx 5-325 mg TAB] Ibuprofen [Motrin] 600 mg PO Q8H PRN #30 tablet 06/19/17 Unknown Rx predniSONE [Deltasone] 40 mg PO QDAY #6 tab 06/19/17 Unknown Rx traMADol [Ultram 50 MG tab] 50 mg PO Q6HR PRN #15 tablet 06/19/17 Unknown Rx HYDROcodone/APAP 5-325 [[place] 1 each PO Q6HR PRN #14 tablet 10/01/17 Unknown Rx 5/325] Ondansetron [Zofran Odt] 4 mg PO Q8HR PRN #14 tab.rapdis 10/01/17 Unknown Rx Acetaminophen [Tylenol Arthritis] 650 mg PO Q6HR PRN #30 tablet.er 11/13/17 Unknown Rx Albuterol Sulfate [Proair 90 mcg IH Q4HR PRN #2 aer.pow.ba 11/13/17 Unknown Rx Respiclick] Benzonatate [Tessalon Perles] 100 mg PO Q8HR PRN #30 capsule 11/13/17 Unknown Rx Fluticasone [Flonase] 1 spray NS QDAY #1 bottle 11/13/17 Unknown Rx Dicyclomine [Bentyl] 10 mg PO QID PRN #20 capsule 04/14/18 Unknown Rx Ondansetron [Zofran Odt] 4 mg PO Q8HR PRN #20 tab.rapdis 04/14/18 Unknown Rx Polyethylene Glycol 3350 [Miralax 17 gm PO QDAY #30 packet 04/14/18 Unknown Rx 3350] Allergies Allergy/AdvReac Type Severity Reaction Status Date / Time NSAIDS (Non-Steroidal AdvReac Unknown Verified 10/01/17 14:57 Anti-Inflamma ED Review of Systems ROS: Stated complaint: CHRONS FLARE UP Other details as noted in HPI Comment: All other systems reviewed and negative ED Past Medical Hx - Past Medical History Previous Medical History?: Yes Additional medical history: crohn's, h/o MRSA 2008, diverticulitis - Surgical History Past Surgical History?: Yes Additional Surgical History: neck sx secondary to MRSA, 2008 - Social History Smoking Status: Current Every Day Smoker Substance Use Type: None - Medications Home Medications: Home Medications Medication Instructions Recorded Confirmed Last Taken Type ALPRAZolam [Xanax TAB] 0.5 mg PO Q6H PRN 06/19/17 06/19/17 06/16/17 History HYDROcodone/APAP 5-325 [[place] 1 each PO Q6HR PRN #11 tablet 06/19/17 Unknown Rx 5-325 mg TAB] Ibuprofen [Motrin] 600 mg PO Q8H PRN #30 tablet 06/19/17 Unknown Rx predniSONE [Deltasone] 40 mg PO QDAY #6 tab 06/19/17 Unknown Rx traMADol [Ultram 50 MG tab] 50 mg PO Q6HR PRN #15 tablet 06/19/17 Unknown Rx HYDROcodone/APAP 5-325 [[place] 1 each PO Q6HR PRN #14 tablet 10/01/17 Unknown Rx 5/325] Ondansetron [Zofran Odt] 4 mg PO Q8HR PRN #14 tab.rapdis 10/01/17 Unknown Rx Acetaminophen [Tylenol Arthritis] 650 mg PO Q6HR PRN #30 tablet.er 11/13/17 Unknown Rx Albuterol Sulfate [Proair 90 mcg IH Q4HR PRN #2 aer.pow.ba 11/13/17 Unknown Rx Respiclick] Benzonatate [Tessalon Perles] 100 mg PO Q8HR PRN #30 capsule 11/13/17 Unknown Rx Fluticasone [Flonase] 1 spray NS QDAY #1 bottle 11/13/17 Unknown Rx Dicyclomine [Bentyl] 10 mg PO QID PRN #20 capsule 04/14/18 Unknown Rx Ondansetron [Zofran Odt] 4 mg PO Q8HR PRN #20 tab.rapdis 04/14/18 Unknown Rx Polyethylene Glycol 3350 [Miralax 17 gm PO QDAY #30 packet 04/14/18 Unknown Rx 3350] ED Physical Exam - General Limitations: No Limitations General appearance: alert, in distress - Head Head exam: Present: atraumatic, normocephalic - Eye Eye exam: Present: normal appearance, EOMI - ENT ENT exam: Present: normal exam, normal orophraynx, mucous membranes moist, normal external ear exam - Neck Neck exam: Present: normal inspection, full ROM - Respiratory Respiratory exam: Present: normal lung sounds bilaterally. Absent: respiratory distress - Cardiovascular Cardiovascular Exam: Present: regular rate, normal rhythm, normal heart sounds. Absent: bradycardia, tachycardia, irregular rhythm, systolic murmur, diastolic murmur, rubs, gallop - GI/Abdominal GI/Abdominal exam: Present: soft, tenderness (left lower quadrant tender, no rebound, guarding or peritoneal signs), normal bowel sounds. Absent: distended , guarding, rebound, rigid, pulsatile mass - Rectal Rectal exam: Present: deferred - exam: Present: normal inspection, other (the patient's was present in the room for the testicular exam.). Absent: testicular tenderness External exam: Present: normal external exam, other (there is no testicular tenderness. There is normal testicular lie bilaterally. There is normal cremasteric reflex bilaterally.) - Extremities Exam Extremities exam: Present: normal inspection, full ROM, normal capillary refill. Absent: tenderness, pedal edema, joint swelling, calf tenderness - Back Exam Back exam: Present: normal inspection, full ROM. Absent: tenderness, CVA tenderness (R), paraspinal tenderness, vertebral tenderness - Neurological Exam Neurological exam: Present: alert, oriented X3, CN II-XII intact, other ( Extraocular movements intact. Tongue midline. No facial droop. Facial sensation intact to light touch in the V1, V2, V3 distribution bilaterally. 5 and 5 strength in 4 extremities.. Sensation is intact to light touch in 4 extremities.). Absent: motor sensory deficit - Psychiatric Psychiatric exam: Present: normal affect, normal mood - Skin Skin exam: Present: warm, dry, intact, normal color. Absent: rash ED Course Vital Signs 04/14/18 04/14/18 00:14 07:38 Temperature 98.1 F 98.2 F Pulse Rate 68 72 Respiratory 17 20 Rate Blood Pressure 112/61 Blood Pressure 122/64 [Left] O2 Sat by Pulse 99 100 Oximetry - Reevaluation(s) Reevaluation #1: 04/14/18 08:33 Differential diagnosis, including but not limited to: Constipation, Crohn's disease, narcotic bowel syndrome Assessment and plan: 27-year-old male on chronic synthetic narcotic, with nontraumatic left lower quadrant abdominal pain, normal testicular exam, normal laboratory studies otherwise, unremarkable physical exam otherwise. We will give the patient hydromorphone for pain, IV fluids, obtain CT scan of the abdomen and pelvis, and then reassess. Reevaluation #2: 04/14/18 11:00 The patient's abdomen is soft on repeat examination. A CT scan of the abdomen and pelvis shows constipation, with no obvious inflammatory process. He is afebrile with reassuring vital signs. Diet and lifestyle modifications have been reviewed with the patient. The patient will be discharged with nonnarcotic pain medication, nausea medication, instructions to follow up with outpatient gastroenterology. ED Medical Decision Making - Lab Data Result diagrams: 04/14/18 00:29 04/14/18 00:29 Vital Signs 04/14/18 04/14/18 00:14 07:38 Temperature 98.1 F 98.2 F Pulse Rate 68 72 Respiratory 17 20 Rate Blood Pressure 112/61 Blood Pressure 122/64 [Left] O2 Sat by Pulse 99 100 Oximetry Lab Results 04/14/18 04/14/18 04/14/18 Range/Units 00:29 00:29 01:40 WBC 7.2 (4.5-11.0) K/mm3 RBC 5.17 H (3.65-5.03) M/mm3 Hgb 15.3 H (11.8-15.2) gm/dl Hct 45.1 (35.5-45.6) % MCV 87 (84-94) fl MCH 30 (28-32) pg MCHC 34 (32-34) % RDW 13.3 (13.2-15.2) % Plt Count 278 (140-440) K/mm3 Lymph % (Auto) 34.5 (13.4-35.0) % [place] % (Auto) 7.2 (0.0-7.3) % Eos % (Auto) 4.5 H (0.0-4.3) % Baso % (Auto) 0.8 (0.0-1.8) % Lymph # 2.5 (1.2-5.4) K/mm3 [place] # 0.5 (0.0-0.8) K/mm3 Eos # 0.3 (0.0-0.4) K/mm3 Baso # 0.1 (0.0-0.1) K/mm3 Seg Neutrophils % 53.0 (40.0-70.0) % Seg Neutrophils # 3.8 (1.8-7.7) K/mm3 Sodium 143 (137-145) mmol/L Potassium 4.0 (3.6-5.0) mmol/L Chloride 101.8 (98-107) mmol/L Carbon Dioxide 28 (22-30) mmol/L Anion Gap 17 mmol/L BUN 8 L (9-20) mg/dL Creatinine 0.8 (0.8-1.5) mg/dL Estimated GFR > 60 ml/min BUN/Creatinine Ratio 10 % Glucose 88 (75-100) mg/dL Calcium 8.9 (8.4-10.2) mg/dL Total Bilirubin 0.20 (0.1-1.2) mg/dL AST 11 (5-40) units/L ALT 15 (7-56) units/L Alkaline Phosphatase 93 (35-129) units/L Total Protein 6.8 (6.3-8.2) g/dL Albumin 4.2 (3.9-5) g/dL Albumin/Globulin Ratio 1.6 % Lipase 90 H (13-60) units/L Urine Color Yellow (Yellow) Urine Turbidity Clear (Clear) Urine pH 5.0 (5.0-7.0) Ur Specific [place] 1.023 (1.003-1.030) Urine Protein <15 mg/dl (Negative) mg/dL Urine Glucose (UA) Neg (Negative) mg/dL Urine Ketones Neg (Negative) mg/dL Urine Blood Neg (Negative) Urine Nitrite Neg (Negative) Urine Bilirubin Neg (Negative) Urine Urobilinogen 4.0 (<2.0) mg/dL Ur Leukocyte Esterase Neg (Negative) Urine WBC (Auto) < 1.0 (0.0-6.0) /HPF Urine RBC (Auto) 2.0 (0.0-6.0) /HPF Calcium Oxalate Crystal Few Urine Mucus Few /HPF - Radiology Data Radiology results: report reviewed, image reviewed CT scan of the abdomen and pelvis with IV contrast shows constipation, otherwise no acute findings. Critical care attestation.: If time is entered above; I have spent that time in minutes in the direct care of this critically ill patient, excluding procedure time. ED Disposition Clinical Impression: Abdominal pain Qualifiers: Abdominal location: left lower quadrant Qualified Code(s): R10.32 - Left lower quadrant pain Disposition: TO HOME OR SELFCARE Is pt being admited?: No Does the pt Need Aspirin: No Condition: Stable Instructions: High Fiber Diet (ED), Constipation (ED) Additional Instructions: Continue current outpatient medications. Drink 6-8 cups of water a day. Drinks plenty of fruits, fibers, vegetables. Laboratory studies were unremarkable, and a CT scan of the abdomen and pelvis. Take the pain medication , nausea medication as directed, follow up with her poultry vaccinator within the next month, return to the ER right away with new pain, worsened pain, migration of pain, fevers, chills, lethargy, irritability, projectile vomiting, change in mental status, confusion, inability to tolerate liquid feeds. Referrals: PRIMARY CARE, [Primary Care Provider] - 3-5 Days MIRIAM KING MD [Staff Physician] - 3-5 Days Forms: AMA Form
[2018-04-14] MEDS ORDERED: BENTYL PO ONE (08:00)
--- NOTE | 2018-04-14 09:22 | Cat Scan Report ---
FINAL REPORT EXAM: CT ABDOMEN PELVIS W CON HISTORY: llq pain TECHNIQUE: CT of the abdomen and pelvis with IV contrast. Coronal and sagittal reconstructed imaging provided. PRIORS: None currently available. FINDINGS: ABDOMEN: Liver, gallbladder, stomach, spleen, pancreas, and adrenals are unremarkable. 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 Otherwise kidneys are unremarkable. No hydronephrosis. No abnormal enhancing lesions. IVC is intact. No aortic aneurysm or dissection. No periaortic or retroperitoneal mass or adenopathy. Moderate stool throughout the colon. No wall thickening or inflammatory changes. Appendix is normal. Terminal ilium is unremarkable. Small bowel loops are unremarkable. It no obstructive pattern. No air-fluid levels. Mesentery is unremarkable. No mass or adenopathy. No free air. No free fluid. PELVIS: Images of the bladder are unremarkable. Bladder is unremarkable. There is no pelvic mass or adenopathy. Inguinal regions are unremarkable. Bones: No suspicious osseous lesions on this limited examination of the skeleton. Metastatic disease better evaluated with bone scan. IMPRESSION: Possible constipation. Otherwise, no acute findings.
== END 2018-04-14 11:11 | disposition home or self-care (01) ==
LOC: ED 23:44
DX: R10.32 Left lower quadrant pain (principal); F17.200 Nicotine dependence, unspecified, uncomplicated
CPT/HCPCS: 36415; 74177; 80053; 81001; 83690; 85025; 96361; 96374; 96375; 99284; J1170; J2405; J7030; Q9967

== ENCOUNTER 2018-04-18 16:28 | Emergency (ER) | payer OTHER ==
[2018-04-18 17:09] LABS: Basophils # (Auto) 0.1 K/mm3 (0.0-0.1); Basophils % (Auto) 1.2 % (0.0-1.8); Eosinophils # (Auto) 0.1 K/mm3 (0.0-0.4); Eosinophils % (Auto) 1.3 % (0.0-4.3); Lymphocytes # (Auto) 1.8 K/mm3 (1.2-5.4); Lymphocytes % (Auto) 22.7 % (13.4-35.0); Mean Corpuscular HGB Conc 36 % (32-34); Mean Corpuscular Hemoglobin 31 pg (28-32); Mean Corpuscular Volume 86 fl (84-94); Monocytes # (Auto) 0.6 K/mm3 (0.0-0.8); Monocytes % (Auto) 7.8 % (0.0-7.3); Platelet Count 270 K/mm3 (140-440); Red Blood Count 4.82 M/mm3 (3.65-5.03); Red Cell Distribution Width 13.4 % (13.2-15.2)
[2018-04-18 17:13] LABS: Hematocrit 41.6 % (35.5-45.6)
[2018-04-18 17:22] LABS: Alanine Aminotransferase 14 units/L (7-56); Albumin 4.5 g/dL (3.9-5); BUN/Creatinine Ratio 12; Blood Urea Nitrogen 11 mg/dL (9-20); Calcium 8.7 mg/dL (8.4-10.2); Hemolysis Index 7
[2018-04-18] MEDS ORDERED: DILAUDID IV ONE (17:25)
[2018-04-18] MEDS ORDERED: NACL 0.9% 1000 ML 1,000 ML IV ONE (17:25)
[2018-04-18] MEDS ORDERED: XYLOCAINE CARDIAC IV ONE ×2 (17:28→19:00)
[2018-04-18] MEDS ORDERED: ZOFRAN IV ONE (17:28)
--- NOTE | 2018-04-18 17:30 | Emergency Department Report ---
ED Abdominal Pain HPI - General Chief Complaint: Abdominal Pain Stated Complaint: FLANK PAIN Time Seen by Provider: 04/18/18 17:10 Source: patient, RN notes reviewed, old records reviewed Mode of arrival: Ambulatory Limitations: No Limitations - History of Present Illness Initial Comments: This is a 27-year-old male whom I have evaluated in the past. Please see my recent note from last week. Patient presents to the ER today with worsening abdominal pain. He reports she's been drinking plenty of water as instructed, taking the MiraLAX as instructed and that he's been defecating normally. He reports that his abdominal pain is now all over his abdomen, but he has chills and nausea. He has no testicular pain or urinary symptoms. He denies hematemesis, bright red blood per rectum. His symptoms the ER were improved with IV fluids, hydromorphone and Zofran. MD Complaint: abdominal pain -: Gradual Location: diffuse Quality: cramping, stabbing, aching Consistency: constant Improves With: medication Worsens With: movement Associated Symptoms: nausea, vomiting, fever, chills, syncope. denies: diarrhea , constipation, dysuria, hematemesis, hematochezia, melena, hematuria, anorexia - Related Data Home Medications Medication Instructions Recorded Confirmed Last Taken ALPRAZolam [Xanax TAB] 0.5 mg PO Q6H PRN 06/19/17 06/19/17 06/16/17 Previous Rx's Medication Instructions Recorded Last Taken Type HYDROcodone/APAP 5-325 [[place] 1 each PO Q6HR PRN #11 tablet 06/19/17 Unknown Rx 5-325 mg TAB] Ibuprofen [Motrin] 600 mg PO Q8H PRN #30 tablet 06/19/17 Unknown Rx predniSONE [Deltasone] 40 mg PO QDAY #6 tab 06/19/17 Unknown Rx traMADol [Ultram 50 MG tab] 50 mg PO Q6HR PRN #15 tablet 06/19/17 Unknown Rx HYDROcodone/APAP 5-325 [[place] 1 each PO Q6HR PRN #14 tablet 10/01/17 Unknown Rx 5/325] Ondansetron [Zofran Odt] 4 mg PO Q8HR PRN #14 tab.rapdis 10/01/17 Unknown Rx Acetaminophen [Tylenol Arthritis] 650 mg PO Q6HR PRN #30 tablet.er 12/27/17 Unknown Rx Albuterol Sulfate [Proair 90 mcg IH Q4HR PRN #2 aer.pow.ba 11/13/17 Unknown Rx Respiclick] Benzonatate [Tessalon Perles] 100 mg PO Q8HR PRN #30 capsule 11/13/17 Unknown Rx Fluticasone [Flonase] 1 spray NS QDAY #1 bottle 11/13/17 Unknown Rx Dicyclomine [Bentyl] 10 mg PO QID PRN #20 capsule 04/14/18 Unknown Rx Ondansetron [Zofran Odt] 4 mg PO Q8HR PRN #20 tab.rapdis 04/14/18 Unknown Rx Polyethylene Glycol 3350 [Miralax 17 gm PO QDAY #30 packet 04/14/18 Unknown Rx 3350] Acetaminophen [Tylenol Arthritis] 650 mg PO Q6HR PRN #30 tablet.er 04/18/18 Unknown Rx Dicyclomine [Bentyl] 10 mg PO QID PRN #20 capsule 04/18/18 Unknown Rx Ondansetron [Zofran Odt] 4 mg PO Q8HR PRN #20 tab.rapdis 04/18/18 Unknown Rx Allergies Allergy/AdvReac Type Severity Reaction Status Date / Time NSAIDS (Non-Steroidal AdvReac Unknown Verified 10/01/17 14:57 Anti-Inflamma ED Review of Systems ROS: Stated complaint: FLANK PAIN Other details as noted in HPI Comment: All other systems reviewed and negative ED Past Medical Hx - Past Medical History Previous Medical History?: Yes Additional medical history: crohn's, h/o MRSA 2008, diverticulitis - Surgical History Additional Surgical History: neck sx secondary to MRSA, 2008 - Social History Smoking Status: Current Every Day Smoker Substance Use Type: None - Medications Home Medications: Home Medications Medication Instructions Recorded Confirmed Last Taken Type ALPRAZolam [Xanax TAB] 0.5 mg PO Q6H PRN 06/19/17 06/19/17 06/16/17 History HYDROcodone/APAP 5-325 [[place] 1 each PO Q6HR PRN #11 tablet 06/19/17 Unknown Rx 5-325 mg TAB] Ibuprofen [Motrin] 600 mg PO Q8H PRN #30 tablet 06/19/17 Unknown Rx predniSONE [Deltasone] 40 mg PO QDAY #6 tab 08/02/17 Unknown Rx traMADol [Ultram 50 MG tab] 50 mg PO Q6HR PRN #15 tablet 06/19/17 Unknown Rx HYDROcodone/APAP 5-325 [[place] 1 each PO Q6HR PRN #14 tablet 10/01/17 Unknown Rx 5/325] Ondansetron [Zofran Odt] 4 mg PO Q8HR PRN #14 tab.rapdis 10/01/17 Unknown Rx Acetaminophen [Tylenol Arthritis] 650 mg PO Q6HR PRN #30 tablet.er 11/13/17 Unknown Rx Albuterol Sulfate [Proair 90 mcg IH Q4HR PRN #2 aer.pow.ba 11/13/17 Unknown Rx Respiclick] Benzonatate [Tessalon Perles] 100 mg PO Q8HR PRN #30 capsule 11/13/17 Unknown Rx Fluticasone [Flonase] 1 spray NS QDAY #1 bottle 11/13/17 Unknown Rx Dicyclomine [Bentyl] 10 mg PO QID PRN #20 capsule 04/14/18 Unknown Rx Ondansetron [Zofran Odt] 4 mg PO Q8HR PRN #20 tab.rapdis 04/14/18 Unknown Rx Polyethylene Glycol 3350 [Miralax 17 gm PO QDAY #30 packet 04/14/18 Unknown Rx 3350] Acetaminophen [Tylenol Arthritis] 650 mg PO Q6HR PRN #30 tablet.er 04/18/18 Unknown Rx Dicyclomine [Bentyl] 10 mg PO QID PRN #20 capsule 04/18/18 Unknown Rx Ondansetron [Zofran Odt] 4 mg PO Q8HR PRN #20 tab.rapdis 04/18/18 Unknown Rx ED Physical Exam - General Limitations: No Limitations General appearance: alert, in distress - Head Head exam: Present: atraumatic, normocephalic - Eye Eye exam: Present: normal appearance, EOMI. Absent: nystagmus - ENT ENT exam: Present: normal exam, normal orophraynx, mucous membranes moist, normal external ear exam - Neck Neck exam: Present: normal inspection, full ROM - Respiratory Respiratory exam: Present: normal lung sounds bilaterally. Absent: respiratory distress - Cardiovascular Cardiovascular Exam: Present: regular rate, normal rhythm, normal heart sounds. Absent: bradycardia, tachycardia, irregular rhythm, systolic murmur, diastolic murmur, rubs, gallop - GI/Abdominal GI/Abdominal exam: Present: soft, tenderness, normal bowel sounds. Absent: distended, guarding, rebound, rigid, pulsatile mass - Rectal Rectal exam: Present: deferred - Extremities Exam Extremities exam: Present: normal inspection, full ROM, normal capillary refill. Absent: pedal edema, joint swelling, calf tenderness - Back Exam Back exam: Present: normal inspection, full ROM. Absent: tenderness, CVA tenderness (R), paraspinal tenderness, vertebral tenderness - Neurological Exam Neurological exam: Present: alert, oriented X3, CN II-XII intact, normal gait, other (Extraocular movements intact. Tongue midline. No facial droop. Facial sensation intact to light touch in the V1, V2, V3 distribution bilaterally. 5 and 5 strength in 4 extremities.. Sensation is intact to light touch in 4 extremities.). Absent: motor sensory deficit - Psychiatric Psychiatric exam: Present: anxious - Skin Skin exam: Present: warm, dry, intact, normal color. Absent: rash ED Course Vital Signs 04/18/18 04/18/18 16:36 17:40 Temperature 98.5 F 98.8 F Pulse Rate 85 64 Respiratory 20 16 Rate Blood Pressure 124/64 Blood Pressure 101/54 [Left] O2 Sat by Pulse 98 97 Oximetry - Reevaluation(s) Reevaluation #1: 04/18/18 18:51 CT scan of the abdomen and pelvis demonstrates no acute disease. No acute abnormalities were noted. ED Medical Decision Making - Lab Data Result diagrams: 04/18/18 16:59 04/18/18 16:59 Vital Signs 04/18/18 04/18/18 16:36 17:40 Temperature 98.5 F 98.8 F Pulse Rate 85 64 Respiratory 20 16 Rate Blood Pressure 124/64 Blood Pressure 101/54 [Left] O2 Sat by Pulse 98 97 Oximetry Lab Results 04/18/18 04/18/18 04/18/18 Range/Units 16:59 16:59 17:30 WBC 8.0 (4.5-11.0) K/mm3 RBC 4.82 (3.65-5.03) M/mm3 Hgb 15.0 (11.8-15.2) gm/dl Hct 41.6 (35.5-45.6) % MCV 86 (84-94) fl MCH 31 (28-32) pg MCHC 36 H (32-34) % RDW 13.4 (13.2-15.2) % Plt Count 270 (140-440) K/mm3 Lymph % (Auto) 22.7 (13.4-35.0) % [place] % (Auto) 7.8 H (0.0-7.3) % Eos % (Auto) 1.3 (0.0-4.3) % Baso % (Auto) 1.2 (0.0-1.8) % Lymph # 1.8 (1.2-5.4) K/mm3 [place] # 0.6 (0.0-0.8) K/mm3 Eos # 0.1 (0.0-0.4) K/mm3 Baso # 0.1 (0.0-0.1) K/mm3 Seg Neutrophils % 67.0 (40.0-70.0) % Seg Neutrophils # 5.3 (1.8-7.7) K/mm3 Sodium 141 (137-145) mmol/L Potassium 3.7 (3.6-5.0) mmol/L Chloride 105.0 (98-107) mmol/L Carbon Dioxide 25 (22-30) mmol/L Anion Gap 15 mmol/L BUN 11 (9-20) mg/dL Creatinine 0.9 (0.8-1.5) mg/dL Estimated GFR > 60 ml/min BUN/Creatinine Ratio 12 % Glucose 109 H (75-100) mg/dL Calcium 8.7 (8.4-10.2) mg/dL Total Bilirubin 0.20 (0.1-1.2) mg/dL AST 11 (5-40) units/L ALT 14 (7-56) units/L Alkaline Phosphatase 96 (35-129) units/L Total Protein 6.8 (6.3-8.2) g/dL Albumin 4.5 (3.9-5) g/dL Albumin/Globulin Ratio 2.0 % Urine Color Yellow (Yellow) Urine Turbidity Clear (Clear) Urine pH 5.0 (5.0-7.0) Ur Specific [employer] 1.029 (1.003-1.030) Urine Protein <15 mg/dl (Negative) mg/dL Urine Glucose (UA) Neg (Negative) mg/dL Urine Ketones Neg (Negative) mg/dL Urine Blood Neg (Negative) Urine Nitrite Neg (Negative) Urine Bilirubin Neg (Negative) Urine Urobilinogen 2.0 (<2.0) mg/dL Ur Leukocyte Esterase Neg (Negative) Urine WBC (Auto) < 1.0 (0.0-6.0) /HPF Urine RBC (Auto) 1.0 (0.0-6.0) /HPF Urine Mucus Few /HPF - Radiology Data Radiology results: pending, report reviewed - Medical Decision Making Differential diagnosis, including but not limited to: Constipation, cyclic vomiting syndrome, narcotic bowel syndrome, intra-abdominal abscess, Crohn's disease, Crohn's flare Assessment and plan: 27-year-old male whom I have recently evaluated for abdominal pain, was presently diagnosed with constipation, and discharged with prescription for MiraLAX, and dietary and lifestyle modifications. The patient endorses that he has been adhering to these aforementioned modifications, that his pain is worse that he been having chills, but he has diffuse abdominal pain. He also is more tender today than when I previously examined and evaluated him. Given that he endorses that his constipation has resolved, given that he endorses that his pain is worse, we will repeat a CT scan of the abdomen and pelvis to assess and see if there is an interval change. After hydromorphone and Zofran in menstruation, I reassessed the patient, his abdomen was improved, and he was noted to plan a cellular phone. His vital signs have been within normal limits and there is no active vomiting at this time Critical care attestation.: If time is entered above; I have spent that time in minutes in the direct care of this critically ill patient, excluding procedure time. ED Disposition Clinical Impression: Abdominal pain Disposition: DC-01 TO HOME OR SELFCARE Is pt being admited?: No Does the pt Need Aspirin: No Condition: Stable Instructions: Irritable Bowel Syndrome (ED) Additional Instructions: Discontinue Percocet, tramadol, any narcotic medications if patient is taking them. Take the prescribed pain medications, nausea medications as needed/ directed. Follow-up with your grain buyer within 2-3 weeks. Return to the ER right away with new pain, worsened pain, migration of pain, fevers, chills, lethargy, irritability, projectile vomiting, change in mental status, confusion, inability to tolerate liquid feeds Referrals: PRIMARY CARE,MD [Primary Care Provider] - 3-5 Days MIRIAM LONDON MD [Staff Physician] - 3-5 Days
[2018-04-18 18:06] LABS: Bilirubin,Urine NEG (Negative); Blood,Urine NEG (Negative); Color,Urine Yellow (Yellow); Mucus,Urine FEW /HPF; Protein,Urine <15 mg/dL mg/dL (Negative); WBC,Urine < 1.0 /HPF (0.0-6.0)
[2018-04-18] MEDS ORDERED: NACL 0.9% IV ONE (19:00)
[2018-04-18 19:09] VITALS: BP 113/59
--- NOTE | 2018-04-21 14:24 | Cat Scan Report ---
FINAL REPORT EXAM: CT ABDOMEN PELVIS W CON HISTORY: abd pain n/v TECHNIQUE: CT abdomen and pelvis with intravenous contrast PRIORS: None. FINDINGS: No acute abnormality identified in the lung bases. No focal abnormality identified within the liver parenchyma. The spleen demonstrates normal size and attenuation. No pancreatic abnormalities seen. The kidneys demonstrate symmetric contrast enhancement. No evidence of hydronephrosis. The adrenal glands are unremarkable Abdominal aorta is normal in caliber. No pathologically enlarged lymph nodes are identified. No signs of free fluid or free air No evidence of small bowel dilatation. Colon is nondistended. No pericolonic inflammatory change. Appendix is identified and is unremarkable. Urinary bladder is unremarkable. IMPRESSION: Negative. No acute abnormalities seen
== END 2018-04-18 19:40 | disposition home or self-care (01) ==
LOC: ED 16:28
DX: R10.9 Unspecified abdominal pain (principal); F17.200 Nicotine dependence, unspecified, uncomplicated
CPT/HCPCS: 36415; 74177; 80053; 81001; 85025; 96361; 96365; 96375; 99284; J1170; J2001; J2405; J7030; Q9967